=== PATIENT | female | born 1965 | race Caucasian/White ===

== ENCOUNTER 2020-03-18 17:39 | Inpatient (IN) | payer MEDICAID ==
[~2020-03-18] VITALS: Ht 167.6 cm; Wt 123.8 kg
[2020-03-18 18:20] LABS: BASOPHILS # (AUTO) 0.1 X10'3 (0-0.2); BASOPHILS % (AUTO) 0.7 % (0-1); EOSINOPHILS # (AUTO) 0.1 X10'3 (0-0.9); EOSINOPHILS % (AUTO) 1.3 % (0-6); HEMATOCRIT 45.1 % (35.0-45.0); HEMOGLOBIN 14.4 g/dl (12.0-16.0); LYMPHOCYTES # (AUTO) 0.9 X10'3 (1.1-4.8); LYMPHOCYTES % (AUTO) 11.5 % (21-51); MEAN CORPUSCULAR HEMOGLOBIN 28.6 PG (27.0-31.0); MEAN CORPUSCULAR VOLUME 89.4 FL (78-98); MEAN PLATELET VOLUME 8.4 FL (7.4-10.4); MONOCYTES # (AUTO) 0.6 X10'3 (0-0.9); MONOCYTES % (AUTO) 7.9 % (2-12); NEUTROPHILS # (AUTO) 6.1 X10'3 (1.8-7.7); NEUTROPHILS % (AUTO) 78.6 % (42-75); PLATELET COUNT 231 X10'3 (140-440); RED BLOOD COUNT 5.04 X10'6 (4.20-5.60); RED CELL DISTRIBUTION WIDTH 14.8 % (11.5-14.5); WHITE BLOOD COUNT 7.7 X10'3 (4.5-11.0)
[2020-03-18 18:45] LABS: ALANINE AMINOTRANSFERASE 86 U/L (12-78); ALBUMIN 3.5 G/DL (3.4-5.0); ALBUMIN/GLOBULIN RATIO 0.8 (1.1-1.5); ALKALINE PHOSPHATASE 102 IU/L (46-116); ANION GAP 0 (8-16); ASPARTATE AMINO TRANSFERASE 65 U/L (10-37); BILIRUBIN,TOTAL 0.6 MG/DL (0.1-1.0); BLOOD UREA NITROGEN 12 MG/DL (7-18); BUN/CREATININE RATIO 13.5 (6.6-38.0); CALCIUM 8.9 MG/DL (8.5-10.1); CHLORIDE 105 MMOL/L (99-107); CREATININE 0.89 MG/DL (0.40-0.90); GLUCOSE 118 MG/DL (70-104); POTASSIUM 3.8 MMOL/L (3.5-5.1); SODIUM 143 MMOL/L (135-145); TOTAL CARBON DIOXIDE 37.9 MMOL/L (24-32); TOTAL PROTEIN 7.9 G/DL (6.4-8.2); eGFR 66 ML/MIN
[2020-03-18 18:48] LABS: ETHANOL < 0.010 GM/DL (0.0-0.010)
[2020-03-18 19:22] LABS: CLARITY,URINE CLEAR (Clear); COLOR,URINE YELLOW (Yellow); GLUCOSE, URINE NEGATIVE (Neg); KETONES,URINE TRACE mg/dl (Neg); LEUKOCYTE ESTERASE ,URINE NEGATIVE (Neg); NITRITES, URINE NEGATIVE (Neg); OCCULT BLOOD,URINE NEGATIVE (Neg); PROTEIN,URINE TRACE mg/dl (Neg)
[2020-03-18 19:26] LABS: URINE AMPHETAMINE SCREEN NEGATIVE (Neg); URINE BARBITUATE SCREEN NEGATIVE (Neg); URINE BENZODIAZEPINES SCREEN NEGATIVE (Neg); URINE CANNABINOID SCREEN NEGATIVE (Neg); URINE COCAINE SCREEN NEGATIVE (Neg); URINE METHADONE SCREEN NEGATIVE (Neg); URINE OPIATE SCREEN NEGATIVE (Neg); URINE PHENCYCLIDINE SCREEN NEGATIVE (Neg)
[2020-03-18 19:27] LABS: UA COLLECTION TYPE STRAIGHT CATH
[2020-03-18 19:28] LABS: BACTERIA,URINE FEW /HPF (Neg); RBC,URINE NONE SEEN /HPF (0-2); SQUAMOUS EPITHELIAL CELL,UR FEW /LPF (FEW); WBC,URINE 0-4 /HPF (0-4)
[2020-03-18 19:40] LABS: TROPONIN I 0.04 NG/ML (0.0-0.05)
[2020-03-18 19:50] LABS: ABG BASE EXCESS 6.3 mmol/L (-2.0-2.0); ABG HCO3 36.2 mmol/L (22.0-26.0); ABG OXYGEN SATURATION 90.3 % (94-97); ABG PCO2 (T) 79.7 mmHg (32.0-45.0); ABG PO2 (T) 65.8 mmHg (75.0-100.0); FCOHb 2.9 % (0.0-3.9); FLOW 2 L/min; FMetHb 0.1 % (0.0-1.5); FO2Hb 87.6 % (94-97); PATIENT TEMPERATURE 36.9; TOTAL HEMOGLOBIN 14.5 G/dl (12.0-16.0)
[2020-03-18] MEDS ORDERED: iohexol 350MG/ML 100ml bottle IV ONE (19:52)
--- NOTE | 2020-03-18 20:56 | NUR ---
Took pt off of bipap and on oxyen as pt traveling out to [place] with tech. Pt able to get up and to the wc per self.
[2020-03-18] MEDS ORDERED: IBUP-1985 PO (21:45)
[2020-03-18] MEDS ORDERED: SERT50TA10 PO (21:45)
[2020-03-18] MEDS ORDERED: BECL7.3A INH (21:48)
[2020-03-18] MEDS ORDERED: ALBU8.5H8 INH (21:48)
[2020-03-18] MEDS ORDERED: potassium Cl 20 mEq SR tablet PO PRN ×2 (21:55)
[2020-03-18] MEDS ORDERED: methylPREDNISolone sod succ 125mg/2ml vial IV ONE (21:55)
[2020-03-18] MEDS ORDERED: furosemide 40mg/4ml inj IV ONE (21:55)
[2020-03-18] MEDS ORDERED: morphine 2 MG/ML inj. syringe IV PRN (21:55)
[2020-03-18] MEDS ORDERED: magnesium 2GM in 50ml NS 50 ML IV PRN (21:55)
[2020-03-18] MEDS ORDERED: acetaminophen 325mg tablet PO PRN (21:55)
[2020-03-18] MEDS ORDERED: magnesium hydroxide 30ml (MOM) UD suspension PO PRN (21:55)
[2020-03-18] MEDS ORDERED: ondansetron/PF 4mg/2ml inj IV PRN (21:55)
[2020-03-18] MEDS ORDERED: mag hydrox/Alum hydrox/simeth 30ml oral suspension PO PRN (21:55)
[2020-03-18] MEDS ORDERED: potassium CL 10mEq/100ml bag 100 ML IV PRN ×2 (21:55)
[2020-03-18] MEDS ORDERED: magnesium Cl slow-release 64mg tablet PO PRN (21:55)
[2020-03-18] MEDS ORDERED: magnesium 4gm in 100ml NS 100 ML IV PRN (21:55)
[2020-03-18 22:06] LABS: ABG BASE EXCESS 6.6 mmol/L (-2.0-2.0); ABG OXYGEN SATURATION 91.9 % (94-97); ABG PCO2 (T) 85.3 mmHg (32.0-45.0); ABG PO2 (T) 73.4 mmHg (75.0-100.0); ALLEN'S TEST POSITIVE; FCOHb 2.6 % (0.0-3.9); FO2Hb 89.5 % (94-97); PATIENT TEMPERATURE 37.1; RESPIRATORY RATE 20 b/min; TOTAL HEMOGLOBIN 14.2 G/dl (12.0-16.0)
--- NOTE | 2020-03-18 22:22 | NUR ---
Patient in room . I have received report from ONESIMO Galeano and had the opportunity to ask questions and assume patient care.
[2020-03-18 23:15] VITALS: BP 195/110
--- NOTE | 2020-03-18 23:58 | NUR ---
Patient is refusing to wear her BIPAP. I have educated her multiple times about the possible consequences of not wear the BIPAP, she states, " you guys just want be to wear it and kick me back out there on the street."
[2020-03-19] VITALS (8 sets, daily range): BP systolic 137–174; BP diastolic 75–103
--- NOTE | 2020-03-19 00:02 | NUR ---
sent to [facility] PAGER ID: [phone] MESSAGE: Room 3013A Mag Jensen: BP 181/119 and recommendations? Patient is also refusing her BIPAP, with CO2 in 80's. I educated her with no success. She is agitated and anxious. Anxiety med might help? Thanks, Blanca [phone]
[2020-03-19] MEDS ORDERED: hydrALAZINE 20mg/ml inj. IV PRN (00:05)
[2020-03-19] MEDS ORDERED: morphine 2 MG/ML inj. syringe IV PRN (00:05)
[2020-03-19] MEDS: LORazepam 2 mg/ml vial IV PRN ×2 (00:25→20:28)
--- NOTE | 2020-03-19 00:55 | NUR ---
PATIENT WEARING BIPAP
[2020-03-19 01:12] LABS: BASOPHILS # (AUTO) 0.1 X10'3 (0-0.2); BASOPHILS % (AUTO) 0.9 % (0-1); EOSINOPHILS # (AUTO) 0.1 X10'3 (0-0.9); EOSINOPHILS % (AUTO) 1.2 % (0-6); HEMATOCRIT 44.3 % (35.0-45.0); HEMOGLOBIN 14.1 g/dl (12.0-16.0); LYMPHOCYTES # (AUTO) 0.8 X10'3 (1.1-4.8); MEAN CORPUSCULAR HEMOGLOBIN 28.5 PG (27.0-31.0); MEAN CORPUSCULAR HGB CONC 31.9 g/dL (33.0-36.5); MEAN CORPUSCULAR VOLUME 89.3 FL (78-98); MEAN PLATELET VOLUME 8.5 FL (7.4-10.4); MONOCYTES # (AUTO) 0.4 X10'3 (0-0.9); MONOCYTES % (AUTO) 4.8 % (2-12); NEUTROPHILS # (AUTO) 7.2 X10'3 (1.8-7.7); NEUTROPHILS % (AUTO) 84.1 % (42-75); PLATELET COUNT 238 X10'3 (140-440); RED BLOOD COUNT 4.96 X10'6 (4.20-5.60); RED CELL DISTRIBUTION WIDTH 14.9 % (11.5-14.5); WHITE BLOOD COUNT 8.5 X10'3 (4.5-11.0)
[2020-03-19 01:29] LABS: ALANINE AMINOTRANSFERASE 85 U/L (12-78); ALBUMIN 3.4 G/DL (3.4-5.0); ALBUMIN/GLOBULIN RATIO 0.8 (1.1-1.5); ALKALINE PHOSPHATASE 107 IU/L (46-116); ANION GAP 2 (8-16); ASPARTATE AMINO TRANSFERASE 51 U/L (10-37); BILIRUBIN,TOTAL 0.4 MG/DL (0.1-1.0); BLOOD UREA NITROGEN 14 MG/DL (7-18); BUN/CREATININE RATIO 15.2 (6.6-38.0); CALCIUM 9.1 MG/DL (8.5-10.1); CHLORIDE 104 MMOL/L (99-107); CREATININE 0.92 MG/DL (0.40-0.90); GLUCOSE 147 MG/DL (70-104); POTASSIUM 4.1 MMOL/L (3.5-5.1); SODIUM 142 MMOL/L (135-145); TOTAL CARBON DIOXIDE 36.5 MMOL/L (24-32); TOTAL PROTEIN 7.7 G/DL (6.4-8.2); eGFR 63 ML/MIN
[2020-03-19 03:06] LABS: ABG HCO3 36.2 mmol/L (22.0-26.0); ABG OXYGEN SATURATION 91.5 % (94-97); ABG PO2 (T) 69.9 mmHg (75.0-100.0); ALLEN'S TEST POSITIVE; FCOHb 2.5 % (0.0-3.9); FMetHb 0.1 % (0.0-1.5); FO2Hb 89.1 % (94-97); PATIENT TEMPERATURE 37.6; TOTAL HEMOGLOBIN 15.2 G/dl (12.0-16.0)
--- NOTE | 2020-03-19 03:14 | NUR ---
sent to [facility] PAGER ID: [phone] MESSAGE: room 3013 Kath KillianStevemy: Patient is still on BIPAP, had to turn Fio2 from 30 to 40 she is satting around 88. I think she needs a breathing tx?? Thanks, Blanca [phone]
--- NOTE | 2020-03-19 03:18 | NUR ---
Sent to [facility] 1402U Mag Killian: Hey she is very wheezy, sats dropping to 88% on Fio2 of 40%. Can we eval and do a treatment please. Thank you, Blanca [phone]
[2020-03-19] MEDS: ipratropium/albuterol 3ml nebule NEB PRN (03:50)
[2020-03-19] MEDS: guaiFENesin ER 600mg tablet PO SCH ×3 (05:10→20:28)
--- NOTE | 2020-03-19 06:15 | NUR ---
Patient desatting on 4L O2, refusing to keep NC on. Patient placed back on BiPAP at this time. Patient is fatigued, unable to follow directions well at this time. Placed back in bed and on BiPAP. Will continue to monitor patient closely.
--- NOTE | 2020-03-19 06:16 | NUR ---
Problems reprioritized. Patient report given, questions answered & plan of care reviewed with richardson Mendez.
--- NOTE | 2020-03-19 06:25 | NUR ---
Patient in room PCU 3013A. I have received report from Blanca ECHOLS and had the opportunity to ask questions and assume patient care.
--- NOTE | 2020-03-19 07:29 | NUR ---
0500 dose of mucinex was not administered by shift engineer
[2020-03-19] MEDS: sertraline 50mg tablet PO SCH (08:00)
[2020-03-19] MEDS: K and/or MAG REPLACEMENT MC SCH ×2 (08:00→20:00)
[2020-03-19] MEDS: budesonide 0.5mg/2ml UD nebule IH SCH ×2 (08:01→20:06)
[2020-03-19] MEDS: furosemide 40mg/4ml inj IV SCH ×2 (08:38→20:28)
--- NOTE | 2020-03-19 08:50 | NUR ---
At bedside with Dr. Grande. Patient is not opening eyes, not following commands. Patient had been up and walking to the bathroom and bedside commode prior to shift change. Patient was placed on BiPAP at shift change and has been keeping this in place. However, patient localizes to pain at this time and will not follow commands. Orders for ABG and close monitoring. Orders initiated at this time.
--- NOTE | 2020-03-19 09:00 | NUR ---
Patient unable to take BiPAP off and safely follow directions or wake up at this time. PO morning medications held. MD notified and agrees. Will continue to monitor patient closely.
[2020-03-19 09:41] LABS: ABG BASE EXCESS 5.2 mmol/L (-2.0-2.0); ABG HCO3 34.4 mmol/L (22.0-26.0); ABG OXYGEN SATURATION 90.7 % (94-97); ABG PCO2 (T) 71.8 mmHg (32.0-45.0); ALLEN'S TEST POSITIVE; FCOHb 1.7 % (0.0-3.9); FMetHb 0.1 % (0.0-1.5); FO2Hb 89.1 % (94-97); PATIENT TEMPERATURE 36.7; RESPIRATORY RATE 20 b/min; TIDAL VOLUME 405 mL; TOTAL HEMOGLOBIN 14.8 G/dl (12.0-16.0)
--- NOTE | 2020-03-19 09:47 | NUR ---
PAGER ID: [phone] MESSAGE: Niecy olivares [phone]. RE Jeffry Killian [phone]. TIGIST TINSLEY is back, pH 7.297, CO2 71.8. Will keep on BiPAP at this time. Thanks!
--- NOTE | 2020-03-19 11:38 | NUR ---
Paged RT for repeat ABG at [address] Grande. Pt still on BiPAP
--- NOTE | 2020-03-19 12:48 | NUR ---
Repeat ABG results received at this time. Discussed with Dr. Grande via phone. Patient is more alert and able to follow some directions, is keeping BiPAP in place at this time. Plan to continue monitoring patient, continue with BiPAP at settings, and update Dr. Grande with any changes in patient mentation or saturations.
[2020-03-19 12:51] LABS: ABG BASE EXCESS 10.4 mmol/L (-2.0-2.0); ABG HCO3 39.4 mmol/L (22.0-26.0); ABG PCO2 (T) 73.4 mmHg (32.0-45.0); ABG PO2 (T) 82.4 mmHg (75.0-100.0); ALLEN'S TEST POSITIVE; FCOHb 1.4 % (0.0-3.9); FMetHb 0.1 % (0.0-1.5); FO2Hb 93.6 % (94-97); PATIENT TEMPERATURE 36.7; RESPIRATORY RATE 20 b/min; TIDAL VOLUME 384 mL; TOTAL HEMOGLOBIN 14.4 G/dl (12.0-16.0)
--- NOTE | 2020-03-19 14:10 | NUR ---
Patient in room PCU 3013. I have received report from ONESIMO Pemberton and had the opportunity to ask questions and assume patient care.
--- NOTE | 2020-03-19 14:10 | NUR ---
Problems reprioritized. Patient report given, questions answered & plan of care reviewed with Angeles ECHOLS. Patient laying in bed, eyes closed, BiPAP in place, no signs of distress. Patient stable at time of report.
--- NOTE | 2020-03-19 17:49 | NUR ---
notified. PAGER ID: [phone] MESSAGE: Re: Mag Ruiz. [phone]. Patient asking for water/coffee. More alert than before. Do you still want to keep her NPO? Thanks. Angeles Stokes #[phone]
--- NOTE | 2020-03-19 18:10 | NUR ---
Problems reprioritized. Patient report given, questions answered & plan of care reviewed with Yahaira ECHOLS.
--- NOTE | 2020-03-19 19:29 | NUR ---
pt found wandering around room with door shut and BiPAP off. pt assisted back to bed, attempted to educate pt about fall risk, and necessity of BiPAP, pt refused education and reorientation. pt became agitated began yelling, insulting staff, and using profanity.
[2020-03-20] MEDS: LORazepam 2 mg/ml vial IV PRN (01:02)
[2020-03-20 01:50] VITALS: BP 139/86
--- NOTE | 2020-03-20 03:33 | NUR ---
BIPAP MASK WAS LAYING ON FLOOR. REPOSITIONED PT AND PLACED BACK ON BIPAP. INSTRUCTED HER NOT TO TAKE MASK OFF.
[2020-03-20 05:53] LABS: BASOPHILS # (AUTO) 0.1 X10'3 (0-0.2); BASOPHILS % (AUTO) 0.7 % (0-1); EOSINOPHILS % (AUTO) 0.1 % (0-6); HEMATOCRIT 41.5 % (35.0-45.0); HEMOGLOBIN 13.2 g/dl (12.0-16.0); LYMPHOCYTES # (AUTO) 1.1 X10'3 (1.1-4.8); LYMPHOCYTES % (AUTO) 11.2 % (21-51); MEAN CORPUSCULAR HEMOGLOBIN 28.9 PG (27.0-31.0); MEAN CORPUSCULAR HGB CONC 31.9 g/dL (33.0-36.5); MEAN CORPUSCULAR VOLUME 90.9 FL (78-98); MEAN PLATELET VOLUME 8.7 FL (7.4-10.4); MONOCYTES # (AUTO) 0.9 X10'3 (0-0.9); MONOCYTES % (AUTO) 8.6 % (2-12); NEUTROPHILS # (AUTO) 7.9 X10'3 (1.8-7.7); NEUTROPHILS % (AUTO) 79.4 % (42-75); PLATELET COUNT 247 X10'3 (140-440); RED BLOOD COUNT 4.57 X10'6 (4.20-5.60); RED CELL DISTRIBUTION WIDTH 14.9 % (11.5-14.5); WHITE BLOOD COUNT 9.9 X10'3 (4.5-11.0)
[2020-03-20 06:00] VITALS: BP 148/85
[2020-03-20 06:22] LABS: ALANINE AMINOTRANSFERASE 60 U/L (12-78); ALBUMIN 2.9 G/DL (3.4-5.0); ALBUMIN/GLOBULIN RATIO 0.7 (1.1-1.5); ALKALINE PHOSPHATASE 88 IU/L (46-116); ANION GAP 0 (8-16); ASPARTATE AMINO TRANSFERASE 37 U/L (10-37); BILIRUBIN,TOTAL 0.4 MG/DL (0.1-1.0); BLOOD UREA NITROGEN 23 MG/DL (7-18); BUN/CREATININE RATIO 26.7 (6.6-38.0); CALCIUM 8.9 MG/DL (8.5-10.1); CHLORIDE 104 MMOL/L (99-107); CREATININE 0.86 MG/DL (0.40-0.90); GLUCOSE 111 MG/DL (70-104); MAGNESIUM 2.2 MG/DL (1.5-2.4); SODIUM 146 MMOL/L (135-145); TOTAL PROTEIN 6.9 G/DL (6.4-8.2); eGFR 68 ML/MIN
[2020-03-20 06:23] LABS: POTASSIUM 3.8 MMOL/L (3.5-5.1)
[2020-03-20 06:30] LABS: TOTAL CARBON DIOXIDE 41.7 MMOL/L (24-32)
--- NOTE | 2020-03-20 06:41 | NUR ---
Problems reprioritized. Patient report given, questions answered & plan of care reviewed with ONESIMO Dozier.
--- NOTE | 2020-03-20 07:00 | NUR ---
Patient in room PCU 3013. I have received report from ONESIMO Syed and had the opportunity to ask questions and assume patient care.
--- NOTE | 2020-03-20 07:01 | NUR ---
PAGER ID: [phone] MESSAGE: 3013A: Mag ESCOTO Critical CO2 of 41.7, pt on bipap FIO2 40% -tatyana [phone]
[2020-03-20] MEDS: ipratropium/albuterol 3ml nebule NEB PRN ×4 (07:34→23:54)
[2020-03-20] MEDS: budesonide 0.5mg/2ml UD nebule IH SCH ×2 (07:37→20:14)
[2020-03-20] MEDS: furosemide 40mg/4ml inj IV SCH ×2 (07:46→15:28)
[2020-03-20] MEDS: guaiFENesin ER 600mg tablet PO SCH ×2 (07:46→20:00)
[2020-03-20] MEDS: sertraline 50mg tablet PO SCH (07:46)
[2020-03-20] MEDS: K and/or MAG REPLACEMENT MC SCH ×2 (07:52→20:00)
--- NOTE | 2020-03-20 11:15 | NUR ---
Pt refuses 11AM vitals
[2020-03-20 15:00] VITALS: BP 151/95
[2020-03-20 18:00] VITALS: BP 130/81
--- NOTE | 2020-03-20 18:15 | NUR ---
Patient in room PCU 3013. I have received report from EDUIN ECHOLS and had the opportunity to ask questions and assume patient care.
--- NOTE | 2020-03-20 18:16 | NUR ---
Problems reprioritized. Patient report given, questions answered & plan of care reviewed with ONESIMO Ann.
[2020-03-20] MEDS: enoxaparin 40mg/0.4ml syringe SUBCUT SCH (20:00)
[2020-03-20 22:00] VITALS: BP 135/90
[2020-03-21 02:00] VITALS: BP 115/95
[2020-03-21 05:34] LABS: BASOPHILS % (AUTO) 0.7 % (0-1); EOSINOPHILS # (AUTO) 0.1 X10'3 (0-0.9); EOSINOPHILS % (AUTO) 1.5 % (0-6); HEMATOCRIT 42.9 % (35.0-45.0); HEMOGLOBIN 13.8 g/dl (12.0-16.0); LYMPHOCYTES # (AUTO) 1.2 X10'3 (1.1-4.8); LYMPHOCYTES % (AUTO) 17.2 % (21-51); MEAN CORPUSCULAR HEMOGLOBIN 28.7 PG (27.0-31.0); MEAN CORPUSCULAR HGB CONC 32.1 g/dL (33.0-36.5); MEAN CORPUSCULAR VOLUME 89.5 FL (78-98); MEAN PLATELET VOLUME 8.4 FL (7.4-10.4); MONOCYTES # (AUTO) 0.6 X10'3 (0-0.9); MONOCYTES % (AUTO) 8.2 % (2-12); NEUTROPHILS # (AUTO) 5.2 X10'3 (1.8-7.7); NEUTROPHILS % (AUTO) 72.4 % (42-75); PLATELET COUNT 255 X10'3 (140-440); RED BLOOD COUNT 4.79 X10'6 (4.20-5.60); RED CELL DISTRIBUTION WIDTH 14.8 % (11.5-14.5); WHITE BLOOD COUNT 7.2 X10'3 (4.5-11.0)
[2020-03-21 05:55] LABS: ALANINE AMINOTRANSFERASE 48 U/L (12-78); ALBUMIN 3.1 G/DL (3.4-5.0); ALBUMIN/GLOBULIN RATIO 0.7 (1.1-1.5); ALKALINE PHOSPHATASE 84 IU/L (46-116); ASPARTATE AMINO TRANSFERASE 25 U/L (10-37); BILIRUBIN,TOTAL 0.4 MG/DL (0.1-1.0); BLOOD UREA NITROGEN 22 MG/DL (7-18); BUN/CREATININE RATIO 30.6 (6.6-38.0); CALCIUM 9.1 MG/DL (8.5-10.1); CHLORIDE 100 MMOL/L (99-107); CREATININE 0.72 MG/DL (0.40-0.90); GLUCOSE 100 MG/DL (70-104); MAGNESIUM 2.2 MG/DL (1.5-2.4); POTASSIUM 3.8 MMOL/L (3.5-5.1); SODIUM 145 MMOL/L (135-145); TOTAL PROTEIN 7.3 G/DL (6.4-8.2); eGFR 84 ML/MIN
[2020-03-21 06:00] VITALS: BP 131/78
--- NOTE | 2020-03-21 06:10 | NUR ---
Problems reprioritized. Patient report given, questions answered & plan of care reviewed with EDUIN ECHOLS.
--- NOTE | 2020-03-21 06:15 | NUR ---
Patient in room PCU 3013. I have received report from ONESIMO Junior and had the opportunity to ask questions and assume patient care.
[2020-03-21 07:07] LABS: ANION GAP 0 (8-16)
[2020-03-21 07:09] LABS: TOTAL CARBON DIOXIDE 45.3 MMOL/L (24-32)
--- NOTE | 2020-03-21 07:13 | NUR ---
PAGER ID: [phone] MESSAGE: [id number]: Maria D Hathaway : TIGIST Critical CO2 of 45.3. Per handoff, pt slept throughout night with BiPAP on -Tasia [phone]
[2020-03-21] MEDS: furosemide 40mg/4ml inj IV SCH ×4 (07:46→23:55)
[2020-03-21] MEDS: guaiFENesin ER 600mg tablet PO SCH ×2 (07:46→19:55)
[2020-03-21] MEDS: sertraline 50mg tablet PO SCH (07:46)
[2020-03-21] MEDS: K and/or MAG REPLACEMENT MC SCH ×2 (07:59→19:52)
[2020-03-21] MEDS: budesonide 0.5mg/2ml UD nebule IH SCH ×2 (09:26→20:19)
[2020-03-21] MEDS: ipratropium/albuterol 3ml nebule NEB PRN (09:26)
--- NOTE | 2020-03-21 10:18 | NUR ---
New orders from Rusu for solumedrol 60mg q8hrs IV
[2020-03-21] MEDS: methylPREDNISolone sod succ 125mg/2ml vial IV SCH ×3 (10:37→23:55)
[2020-03-21 11:00] VITALS: BP 123/69
--- NOTE | 2020-03-21 12:05 | NUR ---
Per Christiane Keen PRN PAGER ID: [phone] MESSAGE: [id number]: Mag Varghese: Pt critical this morning of CO2 45.3. Would you still like to keep pt off BIPAP? -tatyana [phone]
[2020-03-21 15:00] VITALS: BP 134/62
[2020-03-21 18:00] VITALS: BP 143/81
--- NOTE | 2020-03-21 18:00 | NUR ---
Patient in room PCU 3013. I have received report from Tasia ECHOLS and had the opportunity to ask questions and assume patient care.
--- NOTE | 2020-03-21 18:18 | NUR ---
Problems reprioritized. Patient report given, questions answered & plan of care reviewed with ONESIMO Escalante.
[2020-03-21] MEDS: enoxaparin 40mg/0.4ml syringe SUBCUT SCH (19:54)
[2020-03-21 22:00] VITALS: BP 132/70
[2020-03-22] VITALS (7 sets, daily range): BP systolic 104–156; BP diastolic 68–105
[2020-03-22 05:50] LABS: BASOPHILS % (AUTO) 0.2 % (0-1); EOSINOPHILS % (AUTO) 0 % (0-6); HEMATOCRIT 46.2 % (35.0-45.0); HEMOGLOBIN 15.1 g/dl (12.0-16.0); LYMPHOCYTES # (AUTO) 0.5 X10'3 (1.1-4.8); LYMPHOCYTES % (AUTO) 6.8 % (21-51); MEAN CORPUSCULAR HEMOGLOBIN 29.4 PG (27.0-31.0); MEAN CORPUSCULAR HGB CONC 32.6 g/dL (33.0-36.5); MEAN PLATELET VOLUME 8.6 FL (7.4-10.4); MONOCYTES # (AUTO) 0.1 X10'3 (0-0.9); MONOCYTES % (AUTO) 1.4 % (2-12); NEUTROPHILS # (AUTO) 7.2 X10'3 (1.8-7.7); NEUTROPHILS % (AUTO) 91.6 % (42-75); PLATELET COUNT 243 X10'3 (140-440); RED BLOOD COUNT 5.13 X10'6 (4.20-5.60); RED CELL DISTRIBUTION WIDTH 14.4 % (11.5-14.5); WHITE BLOOD COUNT 7.8 X10'3 (4.5-11.0)
--- NOTE | 2020-03-22 06:00 | NUR ---
Patient in room PCU 3013. I have received report from Daya ECHOLS and had the opportunity to ask questions and assume patient care.
[2020-03-22 06:19] LABS: ALANINE AMINOTRANSFERASE 50 U/L (12-78); ALBUMIN 3.1 G/DL (3.4-5.0); ALBUMIN/GLOBULIN RATIO 0.7 (1.1-1.5); ALKALINE PHOSPHATASE 87 IU/L (46-116); ANION GAP 1 (8-16); ASPARTATE AMINO TRANSFERASE 32 U/L (10-37); BILIRUBIN,TOTAL 0.5 MG/DL (0.1-1.0); BLOOD UREA NITROGEN 21 MG/DL (7-18); BUN/CREATININE RATIO 28.4 (6.6-38.0); CHLORIDE 97 MMOL/L (99-107); CREATININE 0.74 MG/DL (0.40-0.90); GLUCOSE 161 MG/DL (70-104); MAGNESIUM 2.3 MG/DL (1.5-2.4); POTASSIUM 3.8 MMOL/L (3.5-5.1); SODIUM 139 MMOL/L (135-145); TOTAL PROTEIN 7.8 G/DL (6.4-8.2); eGFR 81 ML/MIN
--- NOTE | 2020-03-22 06:22 | NUR ---
Problems reprioritized. Patient report given, questions answered & plan of care reviewed with Bree ECHOLS.
[2020-03-22 06:38] LABS: TOTAL CARBON DIOXIDE 41.4 MMOL/L (24-32)
--- NOTE | 2020-03-22 06:41 | NUR ---
Page Sent PAGER ID: [phone] MESSAGE: [id number] Maria D. Patient has Critical CO2 41.4 [facility] [id number]
[2020-03-22] MEDS: K and/or MAG REPLACEMENT MC SCH ×2 (07:40→20:00)
[2020-03-22] MEDS: guaiFENesin ER 600mg tablet PO SCH ×2 (07:40→20:13)
[2020-03-22] MEDS: methylPREDNISolone sod succ 125mg/2ml vial IV SCH ×3 (07:40→23:24)
[2020-03-22] MEDS: furosemide 40mg/4ml inj IV SCH ×3 (07:40→23:25)
[2020-03-22] MEDS: sertraline 50mg tablet PO SCH (07:40)
[2020-03-22] MEDS: ipratropium/albuterol 3ml nebule NEB PRN ×2 (09:21→21:12)
[2020-03-22] MEDS: budesonide 0.5mg/2ml UD nebule IH SCH ×2 (09:21→21:13)
[2020-03-22] MEDS: LORazepam 2 mg/ml vial IV PRN (10:59)
--- NOTE | 2020-03-22 11:34 | NUR ---
Page Sent promotional table spacer PAGER ID: [phone] MESSAGE: [id number] Maria D. Pt requesting nicotine patch or she wants to leave AMA. Mariana [phone]
--- NOTE | 2020-03-22 18:00 | NUR ---
Problems reprioritized. Patient report given, questions answered & plan of care reviewed with Christi ECHOLS.
--- NOTE | 2020-03-22 18:31 | NUR ---
Patient in room PCU 3013. I have received report from Mariana ECHOLS and had the opportunity to ask questions and assume patient care.
[2020-03-22] MEDS: enoxaparin 40mg/0.4ml syringe SUBCUT SCH (20:14)
--- NOTE | 2020-03-22 20:37 | NUR ---
PAGER ID: [phone] MESSAGE: Mag Killian [phone]: Patient is a smoker. requesting nicotine patch -Christi ECHOLS [phone]
[2020-03-22] MEDS: nicotine 14mg patch - 24hr TD SCH (20:45)
--- NOTE | 2020-03-22 23:27 | NUR ---
Patient is aggressive and agitated, yelling at staff. Unable to redirect.
--- NOTE | 2020-03-23 02:32 | NUR ---
Patient refused 0200 vital signs Addendum: 03/23/20 at 0233 by Reyna DILLON Amended: Links added.
--- NOTE | 2020-03-23 05:47 | NUR ---
Student documentation: I have reviewed and agree with all interventions, assessments performed and documented by Reyna ASHRAF. Student Medication Administration: For this medication-pass time frame, all medication were reviewed, dispensed, administered and documented per hospital policy by Reyna ASHRAF.
--- NOTE | 2020-03-23 06:00 | NUR ---
Patient in room PCU 3013. I have received report from Christi ECHOLS and had the opportunity to ask questions and assume patient care.
[2020-03-23 06:02] LABS: BASOPHILS % (AUTO) 0.2 % (0-1); EOSINOPHILS % (AUTO) 0 % (0-6); HEMOGLOBIN 14.9 g/dl (12.0-16.0); LYMPHOCYTES # (AUTO) 0.8 X10'3 (1.1-4.8); LYMPHOCYTES % (AUTO) 7.7 % (21-51); MEAN CORPUSCULAR HEMOGLOBIN 29.8 PG (27.0-31.0); MEAN CORPUSCULAR HGB CONC 33.1 g/dL (33.0-36.5); MEAN PLATELET VOLUME 8.7 FL (7.4-10.4); MONOCYTES # (AUTO) 0.6 X10'3 (0-0.9); MONOCYTES % (AUTO) 5.5 % (2-12); NEUTROPHILS # (AUTO) 8.7 X10'3 (1.8-7.7); NEUTROPHILS % (AUTO) 86.6 % (42-75); PLATELET COUNT 287 X10'3 (140-440); RED CELL DISTRIBUTION WIDTH 14.6 % (11.5-14.5); WHITE BLOOD COUNT 10.1 X10'3 (4.5-11.0)
--- NOTE | 2020-03-23 06:05 | NUR ---
Problems reprioritized. Patient report given, questions answered & plan of care reviewed with Mariana ECHOLS.
--- NOTE | 2020-03-23 06:05 | NUR ---
Problems reprioritized. Patient report given, questions answered & plan of care reviewed with Mariana ECHOLS.
[2020-03-23 06:06] LABS: ALANINE AMINOTRANSFERASE 66 U/L (12-78); ALBUMIN 3.1 G/DL (3.4-5.0); ALBUMIN/GLOBULIN RATIO 0.7 (1.1-1.5); ALKALINE PHOSPHATASE 86 IU/L (46-116); ANION GAP 1 (8-16); ASPARTATE AMINO TRANSFERASE 41 U/L (10-37); BILIRUBIN,TOTAL 0.4 MG/DL (0.1-1.0); BLOOD UREA NITROGEN 31 MG/DL (7-18); BUN/CREATININE RATIO 36.9 (6.6-38.0); CALCIUM 9.2 MG/DL (8.5-10.1); CHLORIDE 99 MMOL/L (99-107); CREATININE 0.84 MG/DL (0.40-0.90); GLUCOSE 138 MG/DL (70-104); MAGNESIUM 2.5 MG/DL (1.5-2.4); POTASSIUM 4.2 MMOL/L (3.5-5.1); SODIUM 141 MMOL/L (135-145); TOTAL PROTEIN 7.3 G/DL (6.4-8.2); eGFR 70 ML/MIN
[2020-03-23 06:09] LABS: TOTAL CARBON DIOXIDE 40.6 MMOL/L (24-32)
--- NOTE | 2020-03-23 06:13 | NUR ---
Page Sent promotional table spacer PAGER ID: [phone] MESSAGE: [id number] Maria D. Critical CO2 40.6 Patient on bipap. Mariana [phone]
[2020-03-23 07:00] VITALS: BP 134/69
[2020-03-23] MEDS: K and/or MAG REPLACEMENT MC SCH ×2 (08:00→20:00)
[2020-03-23] MEDS: furosemide 40mg/4ml inj IV SCH ×2 (08:26→15:52)
[2020-03-23] MEDS: methylPREDNISolone sod succ 125mg/2ml vial IV SCH ×2 (08:26→15:52)
[2020-03-23] MEDS: sertraline 50mg tablet PO SCH (08:27)
[2020-03-23] MEDS: nicotine 14mg patch - 24hr TD SCH (08:27)
[2020-03-23] MEDS: guaiFENesin ER 600mg tablet PO SCH ×2 (08:27→19:22)
[2020-03-23] MEDS: budesonide 0.5mg/2ml UD nebule IH SCH ×2 (08:47→20:11)
[2020-03-23] MEDS: ipratropium/albuterol 3ml nebule NEB PRN ×2 (08:47→20:11)
[2020-03-23 11:00] VITALS: BP 150/99
--- NOTE | 2020-03-23 13:49 | NUR ---
Initial: Pt eating well, good appetite, 75-100% PO Intake, meeting needs. No nutrition problem at this time. Pt admitted with shortness of breath, acute respiratory failure, COPD exacerbation, using BiPAP, and receiving lasix for cor pulmonale/acute on chronic right sided heart failure per MD note. Will follow. Recommend: 1. continue heart healthy diet 2. bowel care as needed 3. weight per rx Addendum: 03/23/20 at [address] Amended: Links added.
[2020-03-23 15:00] VITALS: BP 140/87
[2020-03-23 18:00] VITALS: BP 179/98
--- NOTE | 2020-03-23 18:10 | NUR ---
Problems reprioritized. Patient report given, questions answered & plan of care reviewed with Adonis RN.
--- NOTE | 2020-03-23 18:30 | NUR ---
Patient in room PCU 3013. I have received report from Mariana ECHOLS and had the opportunity to ask questions and assume patient care.
[2020-03-23] MEDS: enoxaparin 40mg/0.4ml syringe SUBCUT SCH (19:22)
[2020-03-23 22:00] VITALS: BP 126/66
[2020-03-24] MEDS: furosemide 40mg/4ml inj IV SCH ×3 (00:22→16:19)
[2020-03-24] MEDS: methylPREDNISolone sod succ 125mg/2ml vial IV SCH ×3 (00:22→16:19)
[2020-03-24 02:00] VITALS: BP 142/82
[2020-03-24 06:00] VITALS: BP 133/85
--- NOTE | 2020-03-24 06:26 | NUR ---
Problems reprioritized. Patient report given, questions answered & plan of care reviewed with Mariana ECHOLS.
--- NOTE | 2020-03-24 06:27 | NUR ---
Patient in room PCU 3013. I have received report from Adonis RN and had the opportunity to ask questions and assume patient care.
[2020-03-24] MEDS: guaiFENesin ER 600mg tablet PO SCH ×2 (07:18→19:14)
[2020-03-24] MEDS: sertraline 50mg tablet PO SCH (07:18)
[2020-03-24] MEDS: nicotine 14mg patch - 24hr TD SCH (07:18)
[2020-03-24] MEDS: K and/or MAG REPLACEMENT MC SCH ×2 (08:00→20:00)
[2020-03-24] MEDS: budesonide 0.5mg/2ml UD nebule IH SCH ×2 (09:16→19:25)
[2020-03-24] MEDS: ipratropium/albuterol 3ml nebule NEB PRN (09:16)
[2020-03-24] MEDS ORDERED: potassium CL 10mEq/100ml bag 100 ML IV PRN (09:45)
[2020-03-24] MEDS ORDERED: magnesium 4gm in 100ml NS 100 ML IV PRN (09:45)
[2020-03-24] MEDS ORDERED: magnesium Cl slow-release 64mg tablet PO PRN (09:45)
[2020-03-24] MEDS ORDERED: potassium Cl 20 mEq SR tablet PO PRN ×2 (09:45)
[2020-03-24 11:00] VITALS: BP 108/69
[2020-03-24 11:05] LABS: BASOPHILS % (AUTO) 0.1 % (0-1); EOSINOPHILS % (AUTO) 0 % (0-6); HEMATOCRIT 49.9 % (35.0-45.0); HEMOGLOBIN 16.1 g/dl (12.0-16.0); LYMPHOCYTES # (AUTO) 0.5 X10'3 (1.1-4.8); LYMPHOCYTES % (AUTO) 5.1 % (21-51); MEAN CORPUSCULAR HEMOGLOBIN 28.6 PG (27.0-31.0); MEAN CORPUSCULAR HGB CONC 32.2 g/dL (33.0-36.5); MEAN CORPUSCULAR VOLUME 89.1 FL (78-98); MONOCYTES # (AUTO) 0.4 X10'3 (0-0.9); MONOCYTES % (AUTO) 4.1 % (2-12); NEUTROPHILS # (AUTO) 8.6 X10'3 (1.8-7.7); NEUTROPHILS % (AUTO) 90.7 % (42-75); PLATELET COUNT 323 X10'3 (140-440); RED BLOOD COUNT 5.61 X10'6 (4.20-5.60); RED CELL DISTRIBUTION WIDTH 14.9 % (11.5-14.5); WHITE BLOOD COUNT 9.5 X10'3 (4.5-11.0)
[2020-03-24 11:21] LABS: ALANINE AMINOTRANSFERASE 109 U/L (12-78); ALBUMIN 3.3 G/DL (3.4-5.0); ALBUMIN/GLOBULIN RATIO 0.7 (1.1-1.5); ALKALINE PHOSPHATASE 92 IU/L (46-116); ANION GAP 1 (8-16); ASPARTATE AMINO TRANSFERASE 67 U/L (10-37); BILIRUBIN,TOTAL 0.6 MG/DL (0.1-1.0); BLOOD UREA NITROGEN 35 MG/DL (7-18); BUN/CREATININE RATIO 36.8 (6.6-38.0); CALCIUM 8.9 MG/DL (8.5-10.1); CHLORIDE 97 MMOL/L (99-107); CREATININE 0.95 MG/DL (0.40-0.90); GLUCOSE 249 MG/DL (70-104); POTASSIUM 3.7 MMOL/L (3.5-5.1); SODIUM 138 MMOL/L (135-145); TOTAL CARBON DIOXIDE 39.8 MMOL/L (24-32); TOTAL PROTEIN 8.1 G/DL (6.4-8.2); eGFR 61 ML/MIN
[2020-03-24 11:31] LABS: ABG BASE EXCESS 6.2 mmol/L (-2.0-2.0); ABG HCO3 33.3 mmol/L (22.0-26.0); ABG OXYGEN SATURATION 96.2 % (94-97); ABG PCO2 (T) 56.6 mmHg (32.0-45.0); ABG PO2 (T) 85.9 mmHg (75.0-100.0); ALLEN'S TEST POSITIVE; FCOHb 0.7 % (0.0-3.9); FLOW 6 L/min; FMetHb 0.2 % (0.0-1.5); FO2Hb 95.3 % (94-97); TOTAL HEMOGLOBIN 16.7 G/dl (12.0-16.0)
[2020-03-24] MEDS: ipratropium/albuterol 3ml nebule NEB SCH ×4 (11:33→23:18)
--- NOTE | 2020-03-24 15:15 | NUR ---
Patient refused multiple attempts to take 1500 vitals. She was quite upset at this time
[2020-03-24 18:00] VITALS: BP 140/68
--- NOTE | 2020-03-24 18:00 | NUR ---
Problems reprioritized. Patient report given, questions answered & plan of care reviewed with Adonis RN.
--- NOTE | 2020-03-24 18:30 | NUR ---
Patient in room PCU 3013. I have received report from Mariana ECHOLS and had the opportunity to ask questions and assume patient care.
[2020-03-24] MEDS: enoxaparin 40mg/0.4ml syringe SUBCUT SCH (19:13)
[2020-03-24] MEDS ORDERED: levoFLOXACIN-Levaquin 750MG/D5 150 ML IV SCH (21:35)
[2020-03-24 22:00] VITALS: BP 122/80
[2020-03-25] MEDS: methylPREDNISolone sod succ 125mg/2ml vial IV SCH ×2 (00:44→07:59)
[2020-03-25] MEDS: ipratropium/albuterol 3ml nebule NEB SCH ×3 (02:40→11:00)
[2020-03-25 05:51] LABS: BASOPHILS % (AUTO) 0.2 % (0-1); EOSINOPHILS % (AUTO) 0 % (0-6); HEMATOCRIT 49.9 % (35.0-45.0); HEMOGLOBIN 16.2 g/dl (12.0-16.0); LYMPHOCYTES # (AUTO) 0.6 X10'3 (1.1-4.8); LYMPHOCYTES % (AUTO) 6.8 % (21-51); MEAN CORPUSCULAR HEMOGLOBIN 29.2 PG (27.0-31.0); MEAN CORPUSCULAR HGB CONC 32.5 g/dL (33.0-36.5); MEAN CORPUSCULAR VOLUME 89.8 FL (78-98); MEAN PLATELET VOLUME 8.9 FL (7.4-10.4); MONOCYTES # (AUTO) 0.4 X10'3 (0-0.9); MONOCYTES % (AUTO) 4.7 % (2-12); NEUTROPHILS # (AUTO) 7.8 X10'3 (1.8-7.7); NEUTROPHILS % (AUTO) 88.3 % (42-75); PLATELET COUNT 236 X10'3 (140-440); RED BLOOD COUNT 5.56 X10'6 (4.20-5.60); RED CELL DISTRIBUTION WIDTH 14.5 % (11.5-14.5); WHITE BLOOD COUNT 8.8 X10'3 (4.5-11.0)
[2020-03-25 05:59] LABS: ALANINE AMINOTRANSFERASE 114 U/L (12-78); ALBUMIN/GLOBULIN RATIO 0.7 (1.1-1.5); ALKALINE PHOSPHATASE 86 IU/L (46-116); ANION GAP 2 (8-16); BILIRUBIN,TOTAL 0.6 MG/DL (0.1-1.0); BLOOD UREA NITROGEN 32 MG/DL (7-18); BUN/CREATININE RATIO 38.6 (6.6-38.0); CALCIUM 8.7 MG/DL (8.5-10.1); CHLORIDE 98 MMOL/L (99-107); CREATININE 0.83 MG/DL (0.40-0.90); GLUCOSE 139 MG/DL (70-104); MAGNESIUM 2.7 MG/DL (1.5-2.4); SODIUM 138 MMOL/L (135-145); TOTAL CARBON DIOXIDE 38.2 MMOL/L (24-32); TOTAL PROTEIN 7.6 G/DL (6.4-8.2); eGFR 71 ML/MIN
[2020-03-25 06:00] VITALS: BP 148/87
[2020-03-25 06:00] LABS: ASPARTATE AMINO TRANSFERASE 55 U/L (10-37); PHOSPHORUS 4.1 MG/DL (2.3-4.5); POTASSIUM 4.4 MMOL/L (3.5-5.1)
--- NOTE | 2020-03-25 06:26 | NUR ---
Problems reprioritized. Patient report given, questions answered & plan of care reviewed with Angeles ECHOLS.
--- NOTE | 2020-03-25 06:28 | NUR ---
Patient in room PCU 3013. I have received report from ONESIMO Lamb and had the opportunity to ask questions and assume patient care.
[2020-03-25] MEDS: sertraline 50mg tablet PO SCH (07:57)
[2020-03-25] MEDS: guaiFENesin ER 600mg tablet PO SCH (07:57)
[2020-03-25] MEDS ORDERED: furosemide 40mg/4ml inj IV SCH (08:00)
[2020-03-25] MEDS: K and/or MAG REPLACEMENT MC SCH (08:00)
[2020-03-25] MEDS: nicotine 14mg patch - 24hr TD SCH (08:07)
[2020-03-25 11:00] VITALS: BP 166/96
--- NOTE | 2020-03-25 13:48 | NUR ---
Patient adamant about leaving AMA. Alert and oriented x4. Strict return precautions discussed. All questions answered. IV site discontinued, with cannula intact. Home medications were brought up from the pharmacy. Belongings gathered. notified. Telemetry discontinued. Charge nurse notified. Patient ambulated to parking lot, in which she went to the bus stop. Wristband cut off at time of AMA.
--- NOTE | 2020-03-25 14:02 | NUR ---
notified. PAGER ID: [phone] MESSAGE: Re; Mag Killian. [phone]. Pt. Left AMA. thanks. Angeles Rosario [phone].
[2020-03-25] MEDS ORDERED: lactobacillus rhamnosus 10,000 MMU CELLS/CAPSULE PO SCH (20:00)
== END 2020-03-25 14:40 | disposition left against medical advice (07) | DRG 133 ==
LOC: ER 17:40 → EDBD 17:40 → ED HOLD 21:53 → PCU 3S 22:50
PROVIDERS: ADMIT Family Medicine; ATTEND Internal Medicine
PROC: 5A09357 Assistance with Respiratory Ventilation, Less than 24 Consecutive Hours, Continuous Positive Airway Pressure (ICD-10-PCS; principal; 2020-03-18)
PROC: 5A09357 Assistance with Respiratory Ventilation, Less than 24 Consecutive Hours, Continuous Positive Airway Pressure (ICD-10-PCS; 2020-03-19)
PROC: 5A09357 Assistance with Respiratory Ventilation, Less than 24 Consecutive Hours, Continuous Positive Airway Pressure (ICD-10-PCS; 2020-03-20)
PROC: 5A09357 Assistance with Respiratory Ventilation, Less than 24 Consecutive Hours, Continuous Positive Airway Pressure (ICD-10-PCS; 2020-03-21)
PROC: 5A09357 Assistance with Respiratory Ventilation, Less than 24 Consecutive Hours, Continuous Positive Airway Pressure (ICD-10-PCS; 2020-03-22)
PROC: 5A09357 Assistance with Respiratory Ventilation, Less than 24 Consecutive Hours, Continuous Positive Airway Pressure (ICD-10-PCS; 2020-03-23)
PROC: 5A09357 Assistance with Respiratory Ventilation, Less than 24 Consecutive Hours, Continuous Positive Airway Pressure (ICD-10-PCS; 2020-03-24)
PROC: 5A09357 Assistance with Respiratory Ventilation, Less than 24 Consecutive Hours, Continuous Positive Airway Pressure (ICD-10-PCS; 2020-03-25)
DX: J96.01 Acute respiratory failure with hypoxia (principal); J96.02 Acute respiratory failure with hypercapnia; E66.01 Morbid (severe) obesity due to excess calories; J44.0 Chronic obstructive pulmonary disease with (acute) lower respiratory infection; E87.2 Acidosis; J44.1 Chronic obstructive pulmonary disease with (acute) exacerbation; G93.41 Metabolic encephalopathy; I26.09 Other pulmonary embolism with acute cor pulmonale; I50.813 Acute on chronic right heart failure; J18.9 Pneumonia, unspecified organism; J20.9 Acute bronchitis, unspecified; I50.33 Acute on chronic diastolic (congestive) heart failure; Z53.29 Procedure and treatment not carried out because of patient's decision for other reasons; Z68.41 Body mass index [BMI] 40.0-44.9, adult; Z87.891 Personal history of nicotine dependence
CPT/HCPCS: 36415; 36600; 70450; 71045; 71275; 76937; 80053; 80305; 80320; 81001; 82803; 83605; 83735; 83880; 84100; 84145; 84484; 85018; 85025; 87040; 87081; 93005; 93308; 94640; 94660; 94760; 97110; 97161; 97530; 99285; G0378; J0360; J1650; J1940; J1956; J2060; J2930; J7626; Q9967

== ENCOUNTER 2020-12-13 11:00 | Emergency (ER) | payer MEDICAID ==
[~2020-12-13] VITALS: Ht 167.6 cm; Wt 116.4 kg
[~2020-12-13 11:00] MED LIST: ALBU8.5H8 INH; BECL7.3A INH; IBUP-1985 PO; SERT-433 PO
[2020-12-13] MEDS ORDERED: vancomycin/NS 1 GM ADD-VANTAGE 250 ML IV ONE (12:00)
[2020-12-13] MEDS ORDERED: CefTRIAXone 2gm/D5W 50ml BAG 50 ML IV ONE (12:00)
[2020-12-13 12:03] LABS: CLARITY,URINE SLIGHTLY CLOUDY (Clear); GLUCOSE, URINE NEGATIVE (Neg); KETONES,URINE TRACE mg/dl (Neg); LEUKOCYTE ESTERASE ,URINE TRACE (Neg); NITRITES, URINE NEGATIVE (Neg); OCCULT BLOOD,URINE NEGATIVE (Neg); PROTEIN,URINE TRACE mg/dl (Neg)
[2020-12-13 12:05] LABS: COLOR,URINE DARK YELLOW (Yellow); UA COLLECTION TYPE CLN CATCH MIDSTREAM
[2020-12-13 12:09] LABS: BACTERIA,URINE 2+ /HPF (Neg); MUCUS STRANDS MANY /LPF (Neg); RBC,URINE NONE SEEN /HPF (0-2); SQUAMOUS EPITHELIAL CELL,UR MANY /LPF (FEW); WBC,URINE 0-4 /HPF (0-4)
[2020-12-13 12:18] LABS: URINE AMPHETAMINE SCREEN POSITIVE (Neg); URINE BARBITUATE SCREEN NEGATIVE (Neg); URINE BENZODIAZEPINES SCREEN NEGATIVE (Neg); URINE CANNABINOID SCREEN POSITIVE (Neg); URINE COCAINE SCREEN NEGATIVE (Neg); URINE METHADONE SCREEN NEGATIVE (Neg); URINE OPIATE SCREEN NEGATIVE (Neg); URINE PHENCYCLIDINE SCREEN NEGATIVE (Neg)
[2020-12-13 12:26] LABS: BASOPHILS # (AUTO) 0.1 X10'3 (0-0.2); BASOPHILS % (AUTO) 0.6 % (0-1); EOSINOPHILS # (AUTO) 0.2 X10'3 (0-0.9); EOSINOPHILS % (AUTO) 2.4 % (0-6); HEMOGLOBIN 12.9 g/dl (12.0-16.0); LYMPHOCYTES # (AUTO) 0.9 X10'3 (1.1-4.8); LYMPHOCYTES % (AUTO) 11.1 % (21-51); MEAN CORPUSCULAR HEMOGLOBIN 30.7 PG (27.0-31.0); MEAN CORPUSCULAR HGB CONC 34.1 g/dL (33.0-36.5); MEAN CORPUSCULAR VOLUME 90.1 FL (78-98); MEAN PLATELET VOLUME 8.7 FL (7.4-10.4); MONOCYTES # (AUTO) 0.5 X10'3 (0-0.9); MONOCYTES % (AUTO) 6.1 % (2-12); NEUTROPHILS # (AUTO) 6.6 X10'3 (1.8-7.7); NEUTROPHILS % (AUTO) 79.8 % (42-75); PLATELET COUNT 283 X10'3 (140-440); RED BLOOD COUNT 4.22 X10'6 (4.20-5.60); RED CELL DISTRIBUTION WIDTH 13.3 % (11.5-14.5); WHITE BLOOD COUNT 8.2 X10'3 (4.5-11.0)
[2020-12-13] MEDS ORDERED: CEPH250T PO (12:37)
[2020-12-13] MEDS ORDERED: SULF1TAB49 PO (12:37)
[2020-12-13 12:53] LABS: ALANINE AMINOTRANSFERASE 62 U/L (12-78); ALBUMIN 2.6 G/DL (3.4-5.0); ALBUMIN/GLOBULIN RATIO 0.6 (1.1-1.5); ALKALINE PHOSPHATASE 110 IU/L (46-116); ANION GAP 9 (8-16); ASPARTATE AMINO TRANSFERASE 68 U/L (10-37); BILIRUBIN,TOTAL 0.5 MG/DL (0.1-1.0); BLOOD UREA NITROGEN 7 MG/DL (7-18); CALCIUM 8.4 MG/DL (8.5-10.1); CHLORIDE 103 MMOL/L (99-107); CREATININE 0.78 MG/DL (0.40-0.90); GLUCOSE 130 MG/DL (70-104); POTASSIUM 3.8 MMOL/L (3.5-5.1); SODIUM 138 MMOL/L (135-145); TOTAL CARBON DIOXIDE 25.7 MMOL/L (24-32); TOTAL PROTEIN 7.3 G/DL (6.4-8.2); eGFR 76 ML/MIN
--- NOTE | 2020-12-13 14:21 | NUR ---
PATIETN AMBULATED TO BATHROOM, PATIETN ATE CHEESESTICK, APPLESAUCE AND DRANK CARTON OF MILK
--- NOTE | 2020-12-13 14:21 | NUR ---
SEE MARCIA SALINAS DESCRIPTION OF WOUNDS
[2020-12-13] MEDS ORDERED: HYDROcodone/acetaminophen 10/325mg tab PO ONE (15:35)
[2020-12-13 15:38] VITALS: BP 165/67
== END 2020-12-13 16:28 | disposition home or self-care (01) ==
LOC: ER 11:00
DX: S01.80XA Unspecified open wound of other part of head, initial encounter (principal); L03.811 Cellulitis of head [any part, except face]; L02.413 Cutaneous abscess of right upper limb; F15.10 Other stimulant abuse, uncomplicated; J44.9 Chronic obstructive pulmonary disease, unspecified; Z72.89 Other problems related to lifestyle; Z59.0 Homelessness; Z79.2 Long term (current) use of antibiotics; Z79.899 Other long term (current) drug therapy; Z88.0 Allergy status to penicillin; X58.XXXA Exposure to other specified factors, initial encounter; Y93.89 Activity, other specified; Y92.89 Other specified places as the place of occurrence of the external cause; Y99.8 Other external cause status
CPT/HCPCS: 36415; 76882; 80053; 80305; 81001; 83605; 84145; 85025; 87040; 96365; 96366; 96367; 99284; J0696; J3370; 96374; 96375